=== PATIENT | female | born 1950 | race Caucasian/White ===

== ENCOUNTER → 2020-05-07 13:00 | Outpatient (REF) | payer MEDICARE, SELFPAY ==
[2020-05-08 08:22] LABS: Color, Urine Yellow (Yellow); Glucose, Dipstick Normal (Normal); Ketone-Dipstick Negative (Negative); Leukocyte Esterase-Dipstick 500 /ul (Negative); Nitrite-Dipstick Positive (Negative); Occult Blood-Urine 25 /ul (Negative); Protein-Dipstick 100 mg/dl (Negative); Urine Bilirubin Dipstick Negative (Negative); Urine Clarity Cloudy (Clear); Urine Urobilinogen Normal (Normal); Urine pH 6.5 (5.0 - 8.0)
== END ==
LOC: OLS.ACW200 13:00
PROVIDERS: Visit Provider Family Medicine
DX: M43.16 Spondylolisthesis, lumbar region (principal); R19.7 Diarrhea, unspecified; C92.01 Acute myeloblastic leukemia, in remission; M62.81 Muscle weakness (generalized); R27.9 Unspecified lack of coordination; R33.9 Retention of urine, unspecified
CPT/HCPCS: 81002; 87077; 87086; 87088; 87186

== ENCOUNTER → 2020-05-22 05:00 | Outpatient (REF) | payer MEDICARE, SELFPAY ==
[2020-05-22 09:41] LABS: Hemoglobin 8.6 g/dL (12.0-15.0); Mean Corp Hgb Conc 29.7 g/dL (32-36); Mean Corpuscular Hgb 28.9 pg (27.0-32.0); Mean Corpuscular Volume 97.3 fL (81-99); Mean Platelet Vol. 10.1 fl (6.2-12.0); Platelet Count 259 K/mm3 (150-450); RBC Distribution Width CV 18.1 % (11.6-14.6); RBC Distribution Width SD 64.5 fl (35.1-43.9); Red Blood Count 2.98 M/mm3 (4.2-5.4); White Blood Count 4.9 K/mm3 (4.4-11.0)
[2020-05-22 10:10] LABS: AST(SGOT) 14 U/L (15-37); Alanine Aminotransfer ALT/SGPT 12 U/L (13-56); Albumin, Serum 2.9 g/dL (3.2-5.0); Alkaline Phosphatase 112 U/L (45-117); Anion Gap 6 (5-15); BUN 73 mg/dL (7-18); Calcium,Total 8.6 mg/dL (8.5-10.1); Chloride 113 mmol/L (98-107); Creatinine, Serum 1.87 mg/dL (0.55-1.02); EST Glomerular Filtration Rate 29 mL/min (>60); Est Glom Filt Rate - Afr Amer 34 mL/min (>60); Globulin 2.8 g/dL (2.2-4.2); Glucose 84 mg/dL (74-106); Magnesium 1.7 mg/dL (1.6-2.6); Potassium 4.1 mmol/L (3.5-5.1); Protein, Total 5.7 g/dL (6.4-8.2); Sodium Level 143 mmol/L (136-145); Thyroid Stim Hormone (TSH) 2.81 uIU/mL (0.358-3.74)
[2020-05-22 14:33] LABS: Vitamin D,25 Hydroxy 27.5 ng/mL
== END ==
LOC: OLS.ACW200 05:00
PROVIDERS: Referring Provider Family Medicine; Visit Provider Family Medicine
DX: M43.16 Spondylolisthesis, lumbar region (principal); R19.7 Diarrhea, unspecified; C92.01 Acute myeloblastic leukemia, in remission; M62.81 Muscle weakness (generalized); R27.9 Unspecified lack of coordination
CPT/HCPCS: 36415; 80053; 82306; 83735; 84443; 85027